=== PATIENT | male | born 1965 | race Caucasian/White ===

== ENCOUNTER 2016-03-21 08:54 | Day surgery (SDC) | payer OTHER ==
[~2016-03-21 08:54] MED LIST: DIPRIVAN 200 MG/20 ML IV ONE; Kenalog-40 IM ONE; Ketamine HCl 50 MG/ML IV ONE; SUBLIMAZE 100 MCG/2 ML IV ONE; Sensorcaine 0.25% 10 ML IJ ONE; Xylocaine 1% Vial 30 ML PF IJ ONE
[2016-03-21] MEDS ORDERED: Lactated Ringers 1,000 ML IV ONE (10:50)
[2016-03-21] MEDS ORDERED: Pepcid 20 MG VIAL IV ONE (10:53)
[2016-03-21] MEDS ORDERED: Lactated Ringers 1,000 ML IV SCH (11:00)
[2016-03-21 11:04] VITALS: BP 125/78; PULSE 81; O2SAT 94
--- NOTE | 2016-03-21 14:03 | XRAY ---
Indication: Right L3-L5 RFA. Intraoperative fluoroscopy was provided for 26 seconds. 2 digital spot images submitted for interpretation demonstrates 3 posterior spinal needles with the tips projecting over the expected course of the right L3-L5 nerve roots. Correlate with intraoperative findings/report.
--- NOTE | 2016-03-21 16:42 | XRAY ---
26 seconds fluoroscopy time in surgery for right RFA L3-5.
== END 2016-03-21 13:10 | disposition home or self-care (01) ==
LOC: SDC-PAIN 08:54
PROVIDERS: ATTEND Pain Medicine Interventional Pain Medicine
DX: M47.816 Spondylosis without myelopathy or radiculopathy, lumbar region (principal); M54.5 Low back pain; M46.1 Sacroiliitis, not elsewhere classified
CPT/HCPCS: 64635; 64636; 72100; 77003; J2001; J2704; J3010; J3301

== ENCOUNTER 2016-06-20 12:39 | Day surgery (SDC) | payer OTHER ==
[~2016-06-20 12:39] MED LIST changes: +Depo-Medrol 40 MG/ML IM ONE; +KEFZOL 1 GM/50 ML PREMIX** 50 ML IV ONE; -Ketamine HCl 50 MG/ML IV ONE; +Lactated Ringers 1,000 ML IV ONE; +TORAdol 30 mg Injection IJ ONE
[2016-06-20] MEDS ORDERED: TORAdol 30 mg Injection ONE (15:45)
--- NOTE | 2016-06-20 19:08 | XRAY ---
Indication: Left L2-L5 RFA. Intraoperative fluoroscopy was provided for 29 seconds. 2 digital spot images submitted for interpretation demonstrates posterior spinal needles with the tips projecting over the expected course of the left L2-L5 nerve roots. Correlate with intraoperative findings/report.
--- NOTE | 2016-06-21 08:40 | XRAY ---
29 seconds fluoroscopy time in surgery for left L2-5 RFA.
== END 2016-06-20 16:40 | disposition home or self-care (01) ==
LOC: SDC-PAIN 12:39
PROVIDERS: ATTEND Pain Medicine Interventional Pain Medicine
DX: M47.816 Spondylosis without myelopathy or radiculopathy, lumbar region (principal); M54.5 Low back pain; M46.1 Sacroiliitis, not elsewhere classified; Z79.891 Long term (current) use of opiate analgesic
CPT/HCPCS: 64634; 64635; 72100; 77003; J0690; J1030; J1885; J2001; J2704; J3010; J3301

== ENCOUNTER 2018-10-01 12:59 | Day surgery (SDC) | payer MEDICARE, MEDICAID ==
[2018-10-01] MEDS ORDERED: Depo-Medrol 40 MG/ML IM ONE (13:00)
[2018-10-01] MEDS ORDERED: Marcaine 0.5% SDV 10 ML IJ ONE (13:00)
[2018-10-01] MEDS ORDERED: DIPRIVAN 200 MG/20 ML IV ONE (13:23)
[2018-10-01] MEDS ORDERED: Ketamine HCl 50 MG/ML ONE (13:23)
[2018-10-01] MEDS ORDERED: Lactated Ringers 1,000 ML IV ONE (13:47)
--- NOTE | 2018-10-01 14:49 | XRAY ---
Indication: Bilateral SI joint injection. Intraoperative fluoroscopy was provided for 13 seconds. 4 digital spot images submitted for interpretation demonstrates posterior needle tip projecting over the inferior left and right SI joints. Correlate with intraoperative findings/report.
--- NOTE | 2018-10-01 15:01 | XRAY ---
13 seconds fluoroscopy time in surgery for bilateral SI joint injections.
== END 2018-10-01 13:45 | disposition home or self-care (01) ==
LOC: SDC-PAIN 12:59
PROVIDERS: ATTEND Psychiatry & Neurology Pain Medicine
DX: M46.1 Sacroiliitis, not elsewhere classified (principal); I10 Essential (primary) hypertension; K21.9 Gastro-esophageal reflux disease without esophagitis; G47.30 Sleep apnea, unspecified; F32.9 Major depressive disorder, single episode, unspecified; Z79.899 Other long term (current) drug therapy
CPT/HCPCS: 72202; 77002; G0260; 27096; J1030; J2704

== ENCOUNTER 2018-10-29 08:41 | Day surgery (SDC) | payer MEDICARE ==
[2018-10-29] MEDS ORDERED: Marcaine 0.5% SDV 10 ML IJ ONE (08:42)
[2018-10-29] MEDS ORDERED: Depo-Medrol 40 MG/ML IM ONE (08:42)
[2018-10-29] MEDS ORDERED: Ketamine HCl 50 MG/ML ONE (10:35)
[2018-10-29] MEDS ORDERED: Proair Hfa MDI IH ONE (10:35)
[2018-10-29] MEDS ORDERED: DIPRIVAN 200 MG/20 ML IV ONE (10:35)
--- NOTE | 2018-10-29 12:58 | XRAY ---
Indication: Left hip injection. Intraoperative fluoroscopy was provided for 6 seconds. Single digital spot image submitted for interpretation demonstrates needle tip projecting over the left greater trochanter. Small amount of contrast injected for needle tip placement. Correlate with intraoperative findings/report.
--- NOTE | 2018-10-29 13:08 | XRAY ---
Indication: Right hip injection. Intraoperative fluoroscopy was provided for 10 seconds. Single digital spot image submitted for interpretation demonstrates needle tip projecting over the right greater trochanter. Small amount of contrast injected for needle tip placement. Correlate with intraoperative findings/report.
--- NOTE | 2018-10-29 13:37 | XRAY ---
6 seconds fluoroscopy time in surgery for left greater trochanter injection.
--- NOTE | 2018-10-29 13:37 | XRAY ---
10 seconds fluoroscopy time in surgery for right greater trochanter injection.
[2018-10-29] MEDS ORDERED: Lactated Ringers 1,000 ML IV ONE (15:52)
== END 2018-10-29 11:10 | disposition home or self-care (01) ==
LOC: SDC-PAIN 08:41
PROVIDERS: ATTEND Psychiatry & Neurology Pain Medicine
DX: M70.62 Trochanteric bursitis, left hip (principal); M70.61 Trochanteric bursitis, right hip; I10 Essential (primary) hypertension; K21.9 Gastro-esophageal reflux disease without esophagitis; G47.30 Sleep apnea, unspecified; Z79.899 Other long term (current) drug therapy
CPT/HCPCS: 73501; 77002; J1030; J2704; A9270-GY

== ENCOUNTER 2019-01-14 10:54 | Day surgery (SDC) | payer MEDICARE ==
[2019-01-14] MEDS ORDERED: Sodium Chloride 0.9(Preservative Free) 10 ML IJ ONE (10:55)
[2019-01-14] MEDS ORDERED: Xylocaine 1% Vial 30 ML PF IJ ONE (10:55)
[2019-01-14] MEDS ORDERED: Depo-Medrol 40 MG/ML IM ONE (10:55)
[2019-01-14] MEDS ORDERED: Ketamine HCl 50 MG/ML ONE (12:51)
[2019-01-14] MEDS ORDERED: DIPRIVAN 200 MG/20 ML IV ONE (12:51)
--- NOTE | 2019-01-14 15:25 | XRAY ---
Indication: Lumbar JACQUELINE. Intraoperative fluoroscopy was provided for 14 seconds. 2 digital spot images submitted for interpretation demonstrates midline needle tip just posterior to the lumbosacral interspace. Correlate with intraoperative findings/report.
--- NOTE | 2019-01-14 15:28 | XRAY ---
14 seconds fluoroscopy time in surgery for lumbar JACQUELINE.
[2019-01-14] MEDS ORDERED: Lactated Ringers 1,000 ML IV ONE (16:17)
== END 2019-01-14 13:20 | disposition home or self-care (01) ==
LOC: SDC-PAIN 10:54
PROVIDERS: ATTEND Psychiatry & Neurology Pain Medicine
DX: M54.16 Radiculopathy, lumbar region (principal); I10 Essential (primary) hypertension; G47.30 Sleep apnea, unspecified; K21.9 Gastro-esophageal reflux disease without esophagitis; F32.9 Major depressive disorder, single episode, unspecified; Z79.899 Other long term (current) drug therapy
CPT/HCPCS: 72100; 77003; J1030; J2001; J2704

== ENCOUNTER 2019-02-11 11:56 | Day surgery (SDC) | payer MEDICARE ==
[2019-02-11] MEDS ORDERED: Xylocaine-Mpf 2% 5 Ml Vial IJ ONE (11:57)
[2019-02-11] MEDS ORDERED: Depo-Medrol 40 MG/ML IM ONE (11:57)
[2019-02-11] MEDS ORDERED: Ketamine HCl 50 MG/ML ONE (12:19)
[2019-02-11] MEDS ORDERED: DIPRIVAN 200 MG/20 ML IV ONE (12:19)
--- NOTE | 2019-02-11 13:25 | XRAY ---
Indication: Bilateral L3-S1 MBB. Intraoperative fluoroscopy was provided for 10 seconds. Single digital spot image submitted for interpretation demonstrates posterior needle tips projecting over the expected course of the left and right L3-S1 nerve roots. Correlate with intraoperative findings/report.
--- NOTE | 2019-02-11 13:29 | XRAY ---
10 seconds fluoroscopy time in surgery for bilateral L3-S1 MBB.
[2019-02-11] MEDS ORDERED: Lactated Ringers 1,000 ML IV ONE (16:02)
== END 2019-02-11 12:45 | disposition home or self-care (01) ==
LOC: SDC-PAIN 11:56
PROVIDERS: ATTEND Psychiatry & Neurology Pain Medicine
DX: M47.816 Spondylosis without myelopathy or radiculopathy, lumbar region (principal); I10 Essential (primary) hypertension; G47.30 Sleep apnea, unspecified; K21.9 Gastro-esophageal reflux disease without esophagitis; Z79.899 Other long term (current) drug therapy
CPT/HCPCS: 64493; 64494; 64495; 72020; 77002; J1030; J2704